=== PATIENT | male | born 1990 | race Caucasian/White ===

== ENCOUNTER 2017-02-10 12:21 | Emergency (ER) | payer BC ==
[~2017-02-10] VITALS: Ht 185.4 cm; Wt 97.5 kg
[2017-02-10 13:10] VITALS: BP 112/81
[2017-02-10] MEDS ORDERED: IBUP-1060 PO (13:34)
[2017-02-10] MEDS ORDERED: LIDO700A4 TP (13:34)
[2017-02-10] MEDS ORDERED: CYCL5TAB PO (13:34)
[2017-02-10] MEDS ORDERED: HYDR-971 PO (13:34)
[2017-02-10] MEDS ORDERED: HYDROCODONE/APAP 5/325MG TABLET. PO ONE (13:45)
[2017-02-10] MEDS ORDERED: KETOROLAC TROMETHAMINE 60 MG/2 ML INJ. IM ONE (13:45)
[2017-02-10] MEDS ORDERED: LIDOCAINE (700MG/PATCH) PATCH. TD ONE (13:45)
--- NOTE | 2017-02-10 14:20 | ED.ADGEN ---
Past Medical History Past Medical History: No Pertinent History Past Surgical History: Other Additional Past Surgical Histo: shoulder and elbow Alcohol Use: None Drug Use: None Adult General Chief Complaint Chief Complaint: LOWER BACK PAIN OR INJURY HPI HPI Patient is a 26 year old female who presents with R lower back pain. Patient was back squatting approximately 350 pounds when he felt sudden pain in his right low back. This occurred 1 hour prior to arrival, no saddle sensory change , no bowel or bladder incontinence or retention. The pain does not radiate, does worsen with movement or twisting or getting anything for pain, no prior similar symptoms. Takes no Medications Review of Systems Review of Systems Constitutional: Denies fever or chills. [] Eyes: Denies change in visual acuity. [] HENT: Denies nasal congestion or sore throat. [] Respiratory: Denies cough or shortness of breath. [] Cardiovascular: Denies chest pain or edema. [] GI: Denies abdominal pain, nausea, vomiting, bloody stools or diarrhea. [] : Denies dysuria. [] Musculoskeletal: Per history of present illness Integument: Denies rash. [] Neurologic: Denies headache, focal weakness or sensory changes. [] Current Medications Current Medications Current Medications Medications (Trade) Dose Ordered Sig/Jane Start Time Stop Time Status Last Admin Dose Admin Acetaminophen/ Hydrocodone Bitart (Lortab 5/325) 1 tab 1X ONCE 02/10/17 13:45 02/10/17 13:46 DC 02/10/17 13:52 1 TAB Diazepam (Valium) 5 mg 1X ONCE 02/10/17 14:15 02/10/17 14:15 DC 02/10/17 13:57 5 MG Ketorolac Tromethamine (Toradol Im) 60 mg 1X ONCE 02/10/17 13:45 02/10/17 13:46 DC 02/10/17 13:52 60 MG Lidocaine (Lidoderm) 1 patch 1X ONCE 02/10/17 13:45 02/10/17 13:46 DC 02/10/17 13:52 1 PATCH Allergies Allergies Allergies Coded Allergies Type Severity Reaction Last Updated Verified No Known Drug Allergies 02/10/17 No Physical Exam Physical Exam Constitutional: Well developed, well nourished, appears uncomfortable, not wanting to move or twist, non-toxic appearance. [] HENT: Normocephalic, atraumatic, bilateral external ears normal, oropharynx moist, no oral exudates, nose normal. [] Eyes: PERRLA, EOMI, conjunctiva normal, no discharge. [] Neck: Normal range of motion, no tenderness, supple, no stridor. [] Cardiovascular:Heart rate regular rhythm, no murmur [] Lungs & Thorax: Bilateral breath sounds clear to auscultation [] Abdomen: soft, no tenderness, no masses, no pulsatile masses. [] Skin: Warm, dry, no erythema, no rash. [] Back: No midline tenderness or step-offs, no external signs of trauma, no edema or erythema, no fluctuance, tenderness to palpation in the left lower back him a negative straight leg test bilaterally Extremities: No tenderness, no cyanosis, no clubbing, ROM intact, no edema. [] Neurologic: Alert and oriented X 3, normal motor function, normal sensory function, no focal deficits noted. [] Psychologic: Affect normal, judgement normal, mood normal. [] Current Patient Data Vital Signs Vital Signs Date Time Temp Pulse Resp B/P Pulse Ox O2 Delivery O2 Flow Rate FiO2 02/10/17 13:52 16 99 Room Air 02/10/17 13:10 97.9 62 112/81 97.9 EKG EKG [] Radiology/Procedures Radiology/Procedures [] Course & Med Decision Making Course & Med Decision Making Pertinent Labs and Imaging studies reviewed. (See chart for details) Patient symptoms appear to be musculoskeletal in nature. Discussed pros and cons of any radiographs and I do not believe the patient would benefit from radiographs this time. Patient was given Lidoderm patch, I am by him and Toradol here in the ED. Discharged with ibuprofen, Muscoda and Flexeril. Also Lidoderm patches. Instructed patient of strict return precautions, follow-up with PCP. Diagnosis: Acute low back strain Dragon Disclaimer Dragon Disclaimer This electronic medical record was generated, in whole or in part, using a voice recognition dictation system. BRYCE VARGAS MD Feb 10, 2017 14:19
== END 2017-02-10 14:00 | disposition home or self-care (01) ==
LOC: ER 12:21
DX: S39.012A Strain of muscle, fascia and tendon of lower back, initial encounter (principal); X58.XXXA Exposure to other specified factors, initial encounter; Y93.89 Activity, other specified; Y92.89 Other specified places as the place of occurrence of the external cause; Y99.8 Other external cause status
CPT/HCPCS: 96372; 99284; J1885; J3360